=== PATIENT | female | born 1950 | race Two or more races ===

== ENCOUNTER 2021-03-18 18:11 | Inpatient (IN) | payer MEDICAID ==
[~2021-03-18] VITALS: Ht 160 cm; Wt 84.4 kg
--- NOTE | 2021-03-18 18:18 | NUR ---
PT BIBRA FROM HOME TO ER BED 06. PER REPORT, PT WENT TO THE BATHROOM AND THEY NOTICED BLOOD IN HER DIAPER. 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 PT STATES HER SYMPTOMS STARTED 1 HOUR AGO. VERBALLY RESPONSIVE. WELSH SPEAKING. GOWNED AND PLACED ON MONITOR. AWAITING MD CARLTON.
--- NOTE | 2021-03-18 18:29 | NUR ---
DR TOBAR AT BEDSIDE FOR EVAL.
[2021-03-18] MEDS ORDERED: IV NS 0.9% 1,000 ML BAG IV ONE (18:30)
[2021-03-18] MEDS ORDERED: IBUPROFEN 600 MG TABLET PO ONE (18:30)
[2021-03-18] MEDS ORDERED: ACETAMINOPHEN ES 500 MG TABLET PO ONE (18:30)
[2021-03-18] MEDS ORDERED: PIPERACILLIN /TAZOBACTAM 3.375 G in IV D5W 50 ML IV ONE (18:30)
--- NOTE | 2021-03-18 18:40 | NUR ---
IV LINE STARTED BLOOD DRAWN AND SENT TO LAB.
[2021-03-18 18:43] LABS: BASOPHILS % (AUTO) 0.2 % (0.0-2.0); EOSINOPHILS % (AUTO) 0.1 % (0.0-6.0); HEMATOCRIT 40 % (33-45); HEMOGLOBIN 12.9 g/dL (11.5-14.8); LYMPHOCYTES # (AUTO) 0.4 K/uL (0.8-4.8); LYMPHOCYTES % (AUTO) 2.6 % (20.0-44.0); MEAN CORPUSCULAR HGB CONC 32 g/dl (31.0-36.0); MEAN CORPUSCULAR VOLUME 81 fL (82-100); MONOCYTES # (AUTO) 0.9 K/uL (0.1-1.30); MONOCYTES % (AUTO) 5.1 % (2.0-12.0); PLATELET COUNT (AUTO) 241 K/uL (150-450); RED BLOOD CELL COUNT(AUTO) 4.98 MIL/uL (4.0-5.2); WHITE BLOOD COUNT (AUTO) 17.3 K/uL (4.3-11.0)
[2021-03-18] MEDS ORDERED: ACETAMINOPHEN ES 500 MG TABLET ONE (18:44)
[2021-03-18] MEDS ORDERED: IBUPROFEN 600 MG TABLET ONE (18:44)
[2021-03-18 18:53] LABS: CALCIUM, SERUM 8.6 mg/dL (8.5-10.1); CARBON DIOXIDE 24 mmol/L (21-32); CHLORIDE 99 mmol/L (98-107); CREATININE 0.9 mg/dL (0.6-1.3); GLUCOSE 119 mg/dL (74-106); POTASSIUM 3.5 mmol/L (3.5-5.1); SODIUM SERUM 133 mmol/L (136-145); UREA NITROGEN, BLOOD 17 mg/dL (7-18)
[2021-03-18 18:59] LABS: ALANINE AMINOTRANSFERASE 40 U/L (12-78); ALBUMIN 3.3 g/dL (3.4-5.0); ALKALINE PHOSPHATASE 73 U/L (46-116); ASPARTATE AMINOTRANSFERASE 41 U/L (15-37); BILIRUBIN,DIRECT 0.2 mg/dL (0.0-0.2); BILIRUBIN,TOTAL 0.5 mg/dL (0.2-1.0); TOTAL PROTEIN, SERUM 8.4 g/dL (6.4-8.2)
--- NOTE | 2021-03-18 19:07 | NUR ---
RADIOLOGY AT BEDSIDE FOR CHEST XRAY.
[2021-03-18] MEDS ORDERED: IV LR 1000 ML 1,000 ML IV ONE ×2 (19:30)
[2021-03-18 19:32] LABS: BILIRUBIN,URINE Negative (NEGATIVE); COLOR,URINE YELLOW (YELLOW); LEUKOCYTE ESTERASE ,URINE Small (NEGATIVE); NITRITE, URINE Positive (NEGATIVE); PH,URINE 5.5 (5.0-8.0); PROTEIN,URINE 30 mg/dl (NEGATIVE); UGLUCOSE Negative (NEGATIVE); UROBILINOGEN,URINE 0.2 EU/dL (0.2)
--- NOTE | 2021-03-18 19:40 | NUR ---
REC'D REPORT FROM FRANCESCO KAPLAN FOR RADHA. PT RESTING COMFORTABLY IN BED. FAMILY AT BEDSIDE. STILL ON MONITOR, WILL CONTINUE TO MONITOR
[2021-03-18 19:45] LABS: BACTERIA,URINE 3+ /HPF (None Seen); SQUAMOUS EPITHELIAL CELL,UR Few /HPF (None Seen)
--- NOTE | 2021-03-18 20:05 | NUR ---
PT BROUGHT BY RADIOLOGY TO CT
--- NOTE | 2021-03-18 20:15 | NUR ---
PT RETURNED FROM CT
--- NOTE | 2021-03-18 20:17 | NUR ---
DR. TOBAR AT BEDSIDE WITH PATIENT AND FAMILY REGARDING PLAN OF CARE
--- NOTE | 2021-03-18 20:57 | NUR ---
[facility] CARDIOLOGY PAGED PER DR TOBAR.
[2021-03-18] MEDS ORDERED: ASPIRIN 325 MG TABLET PO ONE (21:30)
[2021-03-18] MEDS ORDERED: ASPIRIN 325 MG TABLET ONE (21:36)
[2021-03-18] MEDS ORDERED: MAG HYDROX/AL HYDROX/SIMETH 30 ML UDC PO PRN (22:00)
[2021-03-18] MEDS ORDERED: Z GUARD REMEDY 2 OZ OINT TP PRN (22:00)
[2021-03-18] MEDS ORDERED: ZOLPIDEM TARTRATE 5 MG TABLET PO PRN (22:00)
[2021-03-18] MEDS ORDERED: ONDANSETRON HCL/PF 4 MG/2 ML VIAL IVP PRN (22:00)
[2021-03-18] MEDS ORDERED: MAGNESIUM HYDROXIDE 30 ML UDC PO PRN (22:00)
--- NOTE | 2021-03-18 22:33 | NUR ---
REPORT GIVEN TO FRANCESCO CHAUDHRY FOR RADHA
[2021-03-18 22:45] VITALS: BP 138/62
--- NOTE | 2021-03-18 22:53 | NUR ---
PT TRANSFERRED TO TELE 309 PER ACLS PROTOCOL
--- NOTE | 2021-03-18 23:00 | NUR ---
APPLICATIONS SCIENTIST ADMITTING NOTES RECEIVED PATIENT FROM Clayton MORAN ACCOMPANIED BY RAY Arnold RN. PATIENT IS AWAKE, A&O X 3-4, PATIENT IS AMHARIC SPEAKING, ABLE TO MAKE NEEDS KNOWN. VITAL SIGNS TAKEN AND RECORDED FOLLOWS: TEMP 97.8, NC 93, RR 20, OXYGEN SATURATION 100%. IN NO ACUTE DISTRESS NOTED. INFORMATION/HISTORY PROVIDED BY PATIENT UPON ASSESSMENT, INTERPRETED BY [facility] STUDIO DESIGNER. PATIENT IS ON ROOM AIR, TOLERATING WELL, NO SOB NOTED. NO COMPLAINTS OF PAIN AT THIS TIME. ONGOING IV OF NS 1L X 75CC/HR INFUSING WELL ON PATIENT LEFT AC, NO REDNESS, NO S/SX OF INFILTRATION NOTED. CONNECTED TO TELE MONITOR SHOWING NSR WITH ST DEPRESSION HR ON 90'S. SAFETY PRECAUTIONS OBSERVED: BED ON LOWEST LOCKED POSITION, SIDE RAILS UP X2, CALL LIGHT WITHIN EASY REACH. INSTRUCTED TO USE CALL LIGHT WHEN ASSISTANCE IS NEEDED, PATIENT VERBALIZED UNDERSTANDING. WILL CONTINUE TO MONITOR PATIENT'S CURRENT STATUS.
[2021-03-18] MEDS: IV NS 0.9% 1,000 ML IV PRN (23:14)
[2021-03-19] VITALS: BP 135/65
--- NOTE | 2021-03-19 02:29 | NUR ---
RN NOTES RECEIVED A CRITICAL RESULT OF TROPONIN I 3.630 FROM LAB C/O CIERRA. RESULT RELAYED TO ANN-MARIE DUTTON DNP.
--- NOTE | 2021-03-19 02:45 | NUR ---
RN NOTES FOLLOWED UP REFERRAL OF CRITICAL LAB RESULT OF TROPONIN I 3.630 VIA PHONE CALL. CHARGE NURSE INFORMED. AWAITING CALL BACK FROM DR. DUTTON.
--- NOTE | 2021-03-19 03:14 | NUR ---
RN NOTES RECEIVED A CALL BACK FROM DR. DUTTON WITH ORDER MADE AND CARRIED OUT.
[2021-03-19] MEDS ORDERED: ENOXAPARIN SODIUM 40 MG/0.4 ML DISP.SYRIN SQ SCH (03:30)
[2021-03-19 04:00] VITALS: BP 139/79
[2021-03-19] MEDS ORDERED: PIPERACILLIN /TAZOBACTAM 3.375 G VIAL IV ONE (04:41)
[2021-03-19] MEDS ORDERED: ZOSYN IVPB 3.375 G in IV D5W 50ml IV SCH (05:00)
[2021-03-19] MEDS: ACETAMINOPHEN 325 MG TABLET PO PRN ×2 (06:06→21:00)
--- NOTE | 2021-03-19 06:30 | NUR ---
CHINCHILLA FARMER CLOSING NOTES PATIENT IN BED, AWAKE, A&O X 3-4, CENTRAL AFRICAN SPEAKING, IN NO ACUTE DISTRESS NOTED. PATIENT IS ON ROOM AIR, TOLERATING WELL, NO SOB NOTED. NO COMPLAINTS OF PAIN AT THIS TIME. ONGOING IV OF NS 1L X 75CC/HR INFUSING WELL ON PATIENT LEFT AC, NO REDNESS, NO S/SX OF INFILTRATION NOTED. ON TELE MONITOR SHOWING NSR WITH ST DEPRESSION WITH SOME PVC'S, HR ON 90'S. SAFETY PRECAUTIONS OBSERVED AND MAINTAINED DURING THE SHIFT: BED ON LOWEST LOCKED POSITION, SIDE RAILS UP X2, CALL LIGHT WITHIN EASY REACH. WILL ENDORSE TO MORNING SHIFT NURSE FOR RADHA.
[2021-03-19 06:52] LABS: BASOPHILS % (AUTO) 0.1 % (0.0-2.0); EOSINOPHILS % (AUTO) 0.2 % (0.0-6.0); HEMATOCRIT 38 % (33-45); HEMOGLOBIN 11.9 g/dL (11.5-14.8); LYMPHOCYTES # (AUTO) 1.2 K/uL (0.8-4.8); LYMPHOCYTES % (AUTO) 8.4 % (20.0-44.0); MEAN CORPUSCULAR HGB CONC 31 g/dl (31.0-36.0); MEAN CORPUSCULAR VOLUME 83 fL (82-100); MONOCYTES # (AUTO) 0.7 K/uL (0.1-1.30); MONOCYTES % (AUTO) 4.6 % (2.0-12.0); NEUTROPHILS # (AUTO) 12.4 K/uL (1.8-8.9); NEUTROPHILS % (AUTO) 86.7 % (43.0-81.0); PLATELET COUNT (AUTO) 212 K/uL (150-450); RED BLOOD CELL COUNT(AUTO) 4.56 MIL/uL (4.0-5.2); WHITE BLOOD COUNT (AUTO) 14.3 K/uL (4.3-11.0)
[2021-03-19 07:09] LABS: ALBUMIN 2.8 g/dL (3.4-5.0); CALCIUM, SERUM 8.3 mg/dL (8.5-10.1); CREATININE 0.8 mg/dL (0.6-1.3); MAGNESIUM 1.9 mg/dL (1.8-2.4); PHOSPHORUS 3.3 mg/dL (2.5-4.9); POTASSIUM 3.3 mmol/L (3.5-5.1); TOTAL PROTEIN, SERUM 7.6 g/dL (6.4-8.2)
[2021-03-19 07:32] LABS: THYROID STIMULATING HORMONE 0.97 uIU/mL (0.358-3.74)
--- NOTE | 2021-03-19 07:45 | NUR ---
SUBWAY TRAIN DRIVER OPENING NOTES RECEIVED PATIENT IN BED AWAKE, ALERT AND ORIENTED X 3-4. BENGALI SPEAKING, DENIES PAIN OR ANY DISCOMFORTS AT THIS TIME. ON ROOM AIR, TOLERATING WELL WITH NO SOB NOTED. CURRENT TELEMONITOR SHOWS ST, HR 108, NO C/O CARDIAC DISTRESS VOICED. IV ACCESS ON LAC G#20 INTACT AND PATENT, IVF OF NS @ 75ML/HR INFUSING. SAFETY MEASURES IN PLACE: BED IN LOWEST LOCKED POSITION W/ SR UP X2. CALL LIGHT WITHIN REACH. WILL CONTINUE TO MONITOR
[2021-03-19 08:00] VITALS: BP 133/67
[2021-03-19] MEDS: PANTOPRAZOLE 40 MG TABLET.DR PO SCH (08:17)
[2021-03-19] MEDS: ASPIRIN 325 MG TABLET PO SCH (08:17)
[2021-03-19] MEDS ORDERED: POTASSIUM CHLORIDE 20 MEQ TAB.PRT.SR PO ONE (09:00)
[2021-03-19] MEDS ORDERED: ENOXAPARIN SODIUM 40 MG/0.4 ML DISP.SYRIN SQ ONE (09:30)
--- NOTE | 2021-03-19 09:39 | NUR ---
RN NOTES RECEIVED CALL FROM OTTER TRAWLER BOATSWAIN KAREN FIGUEROAID THAT PT HAD CRITICAL HIGH TROPONIN 7.094, DR REDDY MADE AWARE AND ORDERED LOVENOX, BETA BLOCKERS AND CTA. WILL CONTINUE TO MONITOR
[2021-03-19] MEDS: ATORVASTATIN 10 MG TABLET PO SCH (09:52)
--- NOTE | 2021-03-19 10:41 | NUR ---
RN NOTES PT FOR CTA, PROCEDURE EXPLAINED TO PT WITH ECUADOREAN SPEAKING STAFF, PT VERBALIZED UNDERSTANDING. ALL CONSENTS SIGNED AND FILED IN HER CHART. CALLED CT DEPARTMENT, SPOKE TO KAREN AND STATED THAT HE WILL CALL US ONCE THEY HAVE ENOUGH STAFF TO DO IT.
[2021-03-19] MEDS: PIPERACILLIN /TAZOBACTAM 3.375 G in IV D5W 100 ML IV SCH ×2 (11:15→20:35)
[2021-03-19 12:00] VITALS: BP 118/75
[2021-03-19] MEDS: METOPROLOL TARTRATE 50 MG TABLET PO SCH ×2 (12:28→17:23)
--- NOTE | 2021-03-19 17:13 | NUR ---
RN NOTES RECEIVED CALL FROM LAB THAT PT PRELIMINARY BLOOD CULTURE RESULTS SHOWS GRAM NEGATIVE RODS SEEN ON GRAM STAIN IN BOTH BOTTLES OF SET. PT ON IV ABX ZOSYN 3.375MG Q8HRS.
[2021-03-19] MEDS: IV NS 0.9% 1,000 ML IV PRN (18:15)
--- NOTE | 2021-03-19 18:39 | NUR ---
LUMBER DRIVER CLOSING NOTES PATIENT IN BED AWAKE AT THIS TIME. DAUGHTER AT BEDSIDE. ALERT AND ORIENTED X 3-4. PORTUGUESE SPEAKING. ON ROOM AIR, TOLERATING WELL WITH NO SOB NOTED DURING THE DAY. ON EXTERNAL CARE TEAM COORDINATOR SCHEDULER WITH CURRENT READING OF NSR, HR ON THE 80'S, NO C/O CARDIAC DISTRESS VOICED DURING THE DAY. IV ACCESS ON LAC G#20 INTACT AND PATENT, IVF OF NS @ 75ML/HR INFUSING WELL. NO S/S OF INFILTRATION AT SITE NOTED. ALL NEEDS AND CARE ATTENDED WELL. SAFETY MEASURES IN PLACE: BED IN LOWEST LOCKED POSITION W/ SR UP X2. CALL LIGHT WITHIN REACH. WILL ENDORSE RADHA TO HEADWAITER/HEADWAITRESS NURSE.
--- NOTE | 2021-03-19 19:47 | NUR ---
MS FEATURES REPORTER OPENING NOTES: RECEIVED PATIENT AWAKE IN BED , WITH DAUGHTER ON BEDSIDE, NO COMPLAIN OF PAIN AND DISCOMFORT AT THIS TIME, BED IN LOW POSITION, CALL LIGHTS WITHIN REACH, A/OX4 LAO SPEAKING, ON TELE MONITORING WITH READING OF SINUS RTHYM HR-86, PATIENT ON IV HYDRATION WITH LAC@75ML/HR INFUSING WELL, FOR CTA SCHEDULE WITH CONTRAS, PATIENT ON ROOM AIR NOSOB NOTED, KEPT CLEAN AND DRY, WILL CONTINUE TO MONITOR.
[2021-03-19 20:00] VITALS: BP 151/84
[2021-03-19] MEDS: ENOXAPARIN SODIUM 80 MG/0.8 ML DISP.SYRIN SQ SCH (20:39)
--- NOTE | 2021-03-19 21:00 | NUR ---
RN NOTES: PATIENT GIVEN TYLENOL 650MG Q6H FOR FEVER 99.4 F
[2021-03-19 23:38] VITALS: BP 132/76
[2021-03-20] MEDS: METOPROLOL TARTRATE 50 MG TABLET PO SCH ×4 (00:05→17:17)
[2021-03-20] MEDS: PIPERACILLIN /TAZOBACTAM 3.375 G in IV D5W 100 ML IV SCH ×3 (04:22→19:57)
[2021-03-20 04:45] VITALS: BP 140/68
[2021-03-20 06:30] LABS: BASOPHILS % (AUTO) 0.3 % (0.0-2.0); EOSINOPHILS % (AUTO) 0.3 % (0.0-6.0); HEMATOCRIT 37 % (33-45); HEMOGLOBIN 11.9 g/dL (11.5-14.8); LYMPHOCYTES # (AUTO) 1.5 K/uL (0.8-4.8); LYMPHOCYTES % (AUTO) 13.2 % (20.0-44.0); MEAN CORPUSCULAR HGB CONC 33 g/dl (31.0-36.0); MEAN CORPUSCULAR VOLUME 82 fL (82-100); MONOCYTES # (AUTO) 0.9 K/uL (0.1-1.30); MONOCYTES % (AUTO) 7.9 % (2.0-12.0); NEUTROPHILS # (AUTO) 9.1 K/uL (1.8-8.9); NEUTROPHILS % (AUTO) 78.3 % (43.0-81.0); PLATELET COUNT (AUTO) 188 K/uL (150-450); WHITE BLOOD COUNT (AUTO) 11.6 K/uL (4.3-11.0)
[2021-03-20 06:45] LABS: ALBUMIN 2.6 g/dL (3.4-5.0); BILIRUBIN,TOTAL 0.6 mg/dL (0.2-1.0); CREATININE 0.7 mg/dL (0.6-1.3); MAGNESIUM 1.9 mg/dL (1.8-2.4); PHOSPHORUS 2.9 mg/dL (2.5-4.9); POTASSIUM 3.2 mmol/L (3.5-5.1); TOTAL PROTEIN, SERUM 7.5 g/dL (6.4-8.2)
--- NOTE | 2021-03-20 06:50 | NUR ---
RN NOTES: LABORATORY LAB RESULT RECEIVED FOR TROPONIN=11.330 PREVIOUS WAS 7.094 WG=[facility] DR REDDY WAS AWARE, RELAYED TO DR MOJICA WITH NNO. ENDORSE TO INCOMING NURSE
--- NOTE | 2021-03-20 07:23 | NUR ---
MS RN CLOSING NOTE: PATIENT SLEEP IN BED COMFORTABLY, BED IN LOW POSITION, CALL LGHTS WITHIN REACH, NO COMPLAIN OF PAIN AND DISCOMFORT AT THIS TIME, PATINT HAS INTERMITTENT SLEEP AND TRANSFERRING FROM BED TO CHAIR, ON O2 AT 2LPM NO SOB NOTED, A/OX4 WITH BLE WEEPING EDEMA, DRESSING CHANGE, PATIENT KEPT CLEAN AND DRY, ALL NEEDS MET, ENDORSE TO INCOMING SHIFT
[2021-03-20] MEDS: PANTOPRAZOLE 40 MG TABLET.DR PO SCH (07:41)
[2021-03-20 08:00] VITALS: BP 145/84
[2021-03-20] MEDS: ATORVASTATIN 10 MG TABLET PO SCH (09:11)
[2021-03-20] MEDS: ENOXAPARIN SODIUM 80 MG/0.8 ML DISP.SYRIN SQ SCH ×2 (09:11→21:32)
[2021-03-20] MEDS: ACETAMINOPHEN 325 MG TABLET PO PRN (09:12)
[2021-03-20] MEDS: ASPIRIN 325 MG TABLET PO SCH (09:18)
[2021-03-20] MEDS: POTASSIUM CHLORIDE 20 MEQ TAB.PRT.SR PO SCH ×3 (09:23→15:01)
[2021-03-20] MEDS ORDERED: methylPREDNISolone SOD SUCC 125 MG/2ML VIAL IV STA (11:56)
[2021-03-20] MEDS ORDERED: diphenhydrAMINE HCL 50 MG/ML VIAL IV STA (11:56)
[2021-03-20] MEDS ORDERED: IOHEXOL-350 100 ML VIAL IV ONE (12:17)
[2021-03-20] MEDS ORDERED: IV NS 0.9% 250 ML IV ONE (12:17)
[2021-03-20] MEDS ORDERED: METOPROLOL TARTRATE INJ 5 MG/5 ML AMPUL ONE (12:38)
--- NOTE | 2021-03-20 12:46 | NUR ---
Report given to FRANCESCO Romero for continuity of care. Patient tolerated the procedure. Patient transported back to [facility] 309-2 via gurney. Patient remains in stable condition at this time.
[2021-03-20] MEDS ORDERED: NITROGLYCERIN 0.4 MG/TAB BOTTLE SL ONE (13:00)
[2021-03-20] MEDS ORDERED: METOPROLOL TARTRATE INJ 5 MG/5 ML AMPUL IVP PRN (13:00)
[2021-03-20 16:00] VITALS: BP 114/69
--- NOTE | 2021-03-20 19:35 | NUR ---
RN NOTES RECEIVED PATIENT AWAKE ON HER BED, A/OX4, UZBEK SPEAKING, DAUGHTER AT BEDSIDE, SB ON TELE MONITOR, HR-58, NOT IN DISTRESS, NO PAIN NOTED, CALL LIGHT WITHIN REACH, [id number], WILL CONTINUE TO MONITOR
[2021-03-20 20:00] VITALS: BP 124/67
[2021-03-21] VITALS: BP_SYST 119; BP_DIAS 48; BP_DIAS 60
--- NOTE | 2021-03-21 00:05 | NUR ---
RN NOTES DR. FERNANDEZ ( RADIOLOGIST) CALLED AND INFORMED ME THE RESULT OF PATIENT CT ANGIO, WILL INFORM BARRY RAMIREZ
[2021-03-21] MEDS: METOPROLOL TARTRATE 50 MG TABLET PO SCH ×5 (00:21→23:46)
[2021-03-21] MEDS: PIPERACILLIN /TAZOBACTAM 3.375 G in IV D5W 100 ML IV SCH (03:45)
[2021-03-21 04:00] VITALS: BP 134/67
[2021-03-21 06:03] LABS: BASOPHILS % (AUTO) 0.1 % (0.0-2.0); HEMATOCRIT 35 % (33-45); HEMOGLOBIN 11.3 g/dL (11.5-14.8); LYMPHOCYTES # (AUTO) 1.2 K/uL (0.8-4.8); MEAN CORPUSCULAR HGB CONC 33 g/dl (31.0-36.0); MEAN CORPUSCULAR VOLUME 82 fL (82-100); MONOCYTES # (AUTO) 0.6 K/uL (0.1-1.30); MONOCYTES % (AUTO) 6.1 % (2.0-12.0); NEUTROPHILS # (AUTO) 8.4 K/uL (1.8-8.9); NEUTROPHILS % (AUTO) 81.8 % (43.0-81.0); PLATELET COUNT (AUTO) 187 K/uL (150-450); RED BLOOD CELL COUNT(AUTO) 4.23 MIL/uL (4.0-5.2); WHITE BLOOD COUNT (AUTO) 10.3 K/uL (4.3-11.0)
--- NOTE | 2021-03-21 06:27 | NUR ---
RN NOTES SLEEPING BUT AROUSABLE, NOT IN DISTRESS, DENIES PAIN, NO SOB, MORNING CARE RENDERED , CALL LIGHT WITHIN REACH, [id number], PT. NEEDS ATTENDED
[2021-03-21 06:31] LABS: ALBUMIN 2.3 g/dL (3.4-5.0); BILIRUBIN,TOTAL 0.3 mg/dL (0.2-1.0); CALCIUM, SERUM 8.1 mg/dL (8.5-10.1); CREATININE 0.7 mg/dL (0.6-1.3); MAGNESIUM 2.2 mg/dL (1.8-2.4); PHOSPHORUS 2.8 mg/dL (2.5-4.9); POTASSIUM 3.7 mmol/L (3.5-5.1); TOTAL PROTEIN, SERUM 7.3 g/dL (6.4-8.2)
[2021-03-21] MEDS: PANTOPRAZOLE 40 MG TABLET.DR PO SCH (07:30)
--- NOTE | 2021-03-21 07:45 | NUR ---
RN OPENING NOTES SLEEPING BUT AROUSABLE, NOT IN DISTRESS, NO C/O PAIN OR DISCOMFORT BREATHING EVEN AND UNLABORED CALL LIGHT WITHIN REACH AND ANSWERE DPROMPTLY. BED IN LOWEST POSITION, SIDE RAILS X2.
[2021-03-21] MEDS: ATORVASTATIN 10 MG TABLET PO SCH (08:40)
[2021-03-21] MEDS: ASPIRIN 325 MG TABLET PO SCH (08:40)
[2021-03-21] MEDS: ENOXAPARIN SODIUM 80 MG/0.8 ML DISP.SYRIN SQ SCH (08:41)
[2021-03-21 08:47] VITALS: BP 122/72
[2021-03-21] MEDS: GENTAMICIN 100 MG in IV D5W 100 ML IV SCH (11:31)
[2021-03-21 16:58] VITALS: BP 134/66
--- NOTE | 2021-03-21 19:30 | NUR ---
MS BANDOLEER STRAIGHTENER STAMPER OPENING NOTES: RECEIVED PATIENT IN BED , AWAKE, WITH DAUGHTER ON BEDSIDE, ALERT AND ORIENTED X 4, PATIENT IS A ICELANDIC SPEAKER. ONGOING IVF OF NS 1 L X 75CC/HR INFUSING WELL OVER PATIENT'S RAC G#18, NO REDNESS NOTED, NO S/SX OF INFILTRATION NOTED. NOTED WITH LEFT ARM BRUISE AND BRUISE ON RIGHT LOWER ABDOMINAL AREA. PATIENT IS IN NO ACUTE DISTRESS. ON TELEMONITOR SHOWING NSR HR 62 BPM. ON ROOM AIR TOLERATING WELL NO SOB NOTED. SAFETY PRECAUTIONS IN PLACE: BED ON LOWEST LOCKED POSITION, SIDE RAILS UP X2, KEPT CALL LIGHT WITHIN EASY REACH. REINFORCED NPO POST MIDNIGHT. INSTRUCTED TO USE CALL LIGHT WHEN ASSISTANCE IS NEEDED. PATIENT VERBALIZED UNDERSTANDING OF INSTRUCTIONS GIVEN. WILL CONTINUE TO MONITOR PATIENT CURRENT STATUS.
[2021-03-21 20:00] VITALS: BP 134/81
[2021-03-21 20:01] VITALS: BP 134/81
[2021-03-22] VITALS (7 sets, daily range): BP systolic 122–151; BP diastolic 65–95
[2021-03-22] MEDS: IV NS 0.9% 1,000 ML IV PRN ×2 (03:43→19:19)
[2021-03-22] MEDS: METOPROLOL TARTRATE 50 MG TABLET PO SCH ×3 (05:35→17:59)
[2021-03-22 05:54] LABS: BASOPHILS % (AUTO) 0.3 % (0.0-2.0); EOSINOPHILS % (AUTO) 1.5 % (0.0-6.0); HEMATOCRIT 33 % (33-45); HEMOGLOBIN 10.6 g/dL (11.5-14.8); LYMPHOCYTES % (AUTO) 36.5 % (20.0-44.0); MEAN CORPUSCULAR HGB CONC 32 g/dl (31.0-36.0); MEAN CORPUSCULAR VOLUME 82 fL (82-100); MONOCYTES # (AUTO) 0.9 K/uL (0.1-1.30); MONOCYTES % (AUTO) 11.1 % (2.0-12.0); NEUTROPHILS # (AUTO) 4.2 K/uL (1.8-8.9); NEUTROPHILS % (AUTO) 50.6 % (43.0-81.0); PLATELET COUNT (AUTO) 195 K/uL (150-450); RED BLOOD CELL COUNT(AUTO) 3.99 MIL/uL (4.0-5.2); WHITE BLOOD COUNT (AUTO) 8.2 K/uL (4.3-11.0)
--- NOTE | 2021-03-22 06:01 | NUR ---
RN NOTES' RECEIVED A PHONE CALL FROM LAB C/O NAZANIN. PATIENT'S PRELIMINARY RESULT OF BLOOD CULTURE IS (+) FOR GRAM NEGATIVE RODS. KIRSTEN FAIR (ID) INFORMED.
[2021-03-22 06:15] LABS: CALCIUM, SERUM 7.7 mg/dL (8.5-10.1); CREATININE 0.7 mg/dL (0.6-1.3); POTASSIUM 3.6 mmol/L (3.5-5.1)
--- NOTE | 2021-03-22 06:26 | NUR ---
FLIGHT ENGINEER INSPECTOR CLOSING NOTES: PATIENT IN BED , AWAKE, A&O X 4, IVF OF NS 1 L X 75CC/HR INFUSING WELL OVER PATIENT'S RAC G#18, NO REDNESS NOTED, NO S/SX OF INFILTRATION NOTED. NOTED WITH LEFT ARM BRUISE AND BRUISE ON RIGHT LOWER ABDOMINAL AREA. IN NO ACUTE DISTRESS. ON TELEMONITOR SHOWING NSR HR 62 BPM. NO SOB NOTED. SAFETY PRECAUTIONS OBSERVED AND MAINTAINED DURING THE SHIFT: BED ON LOWEST LOCKED POSITION, SIDE RAILS UP X2, KEPT CALL LIGHT WITHIN EASY REACH. ON NPO. NEEDS ATTENDED. WILL ENDORSE TO MORNING SHIFT NURSE FOR RADHA.
[2021-03-22] MEDS: PANTOPRAZOLE 40 MG TABLET.DR PO SCH (07:30)
--- NOTE | 2021-03-22 07:59 | NUR ---
TELE/RN OPENING NOTES: RECEIVED PATIENT IN BED , AWAKE, A&O X 4, ON OXYGEN AT 2 LPM VIA NASAL CANULA. IN NO ACUTE DISTRESS. ON NPO DUE TO SCHEDULED CATHETERIZATION TODAY BETWEEN [phone] NINO. ALL CONSENTS SIGNED AND COMPLETED ON THE CHART. ON TELEMONITOR SHOWING SINUS WHIT. IVF OF NS 1 L X 75CC/HR INFUSING WELL OVER PATIENT'S RAC G#18, NO REDNESS NOTED, NO S/SX OF INFILTRATION NOTED. NOTED WITH LEFT ARM BRUISE AND BRUISE ON RIGHT LOWER ABDOMINAL AREA. SAFETY PRECAUTIONS OBSERVED: BED ON LOWEST LOCKED POSITION, SIDE RAILS UP X2, KEPT CALL LIGHT WITHIN EASY REACH. WILL CONTINUE TO MONITOR PATIENT.
[2021-03-22] MEDS: ATORVASTATIN 10 MG TABLET PO SCH (08:10)
[2021-03-22] MEDS: ASPIRIN 325 MG TABLET PO SCH (08:10)
[2021-03-22] MEDS: GENTAMICIN 100 MG in IV D5W 100 ML IV SCH (11:37)
[2021-03-22] MEDS ORDERED: methylPREDNISolone SOD SUCC 125 MG/2ML VIAL IV ONE (12:00)
[2021-03-22] MEDS ORDERED: LIDOCAINE HCL/MPF 1% 30 ML VIAL IJ ONE (12:40)
[2021-03-22] MEDS ORDERED: IODIXANOL 150 ML IV ONE (12:40)
[2021-03-22] MEDS ORDERED: IV NS 0.9% 1,000 ML ONE (12:40)
[2021-03-22] MEDS ORDERED: NITROGLYCERIN IN 5 % DEXTROSE 250 ML IV ONE (12:41)
--- NOTE | 2021-03-22 13:00 | NUR ---
MS/RN NOTES PATIENT PICKED UP TO DO CARDIAC CATHETERIZATION. PATIENT ALERT AND ORIENTED X3, ABLE TO MAKE NEEDS KNOWN. V/S WITHIN NORMAL.
[2021-03-22] MEDS ORDERED: diphenhydrAMINE HCL 50 MG/ML VIAL ONE (13:38)
[2021-03-22] MEDS ORDERED: methylPREDNISolone SOD SUCC 125 MG/2ML VIAL ONE (13:38)
[2021-03-22] MEDS ORDERED: FENTANYL PF 100MCG/2ML AMPUL ONE (14:04)
[2021-03-22] MEDS ORDERED: MIDAZOLAM HCL 2 MG/2ML VIAL ONE (14:04)
--- NOTE | 2021-03-22 14:45 | NUR ---
ELECTRICAL SYSTEMS DESIGN ENGINEER NOTES PATIENT CAME BACK FROM THE CARDIAC CATHETERIZATION PROCEDURE. PATIENT IS ALERT AND ORIENTED X3, ABLE TO MAKE NEEDS KNOWN. TR BAND PRESENT ON RIGHT ARM TO BE GRADUALLY DEFLATED AFTER AN HOUR. PATIENT'S RIGHT UPPER EXTREMITY CHECKED FOR BOUNDING PULSE-PRESENT, NO DISCOLORATION NOTED. NO BLEEDING NOTED. WILL CONTINUE TO MONITOR.
--- NOTE | 2021-03-22 15:47 | NUR ---
TELE/RN NOTES PATIENT'S PREVIOUS IV ACCESS ON LEFT AC THAT WAS DISCONTINUED 2 DAYS AGO WAS NOTED TO BE SWOLLEN, BRUISING AND TENDER TO TOUCH. REPORTED ASSESSMENT TO DR. PIPER AND ORDERED ECHO DUPLEX OF THE LEFT ARM COMPLETE TO RULE OUT DVT. VERIFIED ORDER AND CARRIED OUT. WILL CONTINUE TO MONITOR PATIENT.
--- NOTE | 2021-03-22 19:08 | NUR ---
TELE/RN NOTES VENOUS DUPLEX RESULT ON LEFT ARM IS NEGATIVE FOR DVT. NOTIFIED DR. PIPER.
--- NOTE | 2021-03-22 19:09 | NUR ---
TELE/RN CLOSING NOTES: PATIENT IN BED , AWAKE, A&O X 4, ON OXYGEN AT 2 LPM VIA NASAL CANULA. IN NO ACUTE DISTRESS. CARDIAC CATHETERIZATION ON RIGHT HAND DONE TODAY BY DR. NINO. NO BLEEDING NOTED. ON CARDIAC DIET. ON TELEMONITOR SHOWING SR 88. IVF OF NS 1 L X 75CC/HR INFUSING WELL OVER PATIENT'S RAC G#18, NO REDNESS NOTED, NO S/SX OF INFILTRATION NOTED. SAFETY PRECAUTIONS OBSERVED: BED ON LOWEST LOCKED POSITION, SIDE RAILS UP X2, KEPT CALL LIGHT WITHIN EASY REACH. WILL ENDORSE TO THE NEXT SHIFT FOR CONTINUITY OF CARE.
--- NOTE | 2021-03-22 19:30 | NUR ---
MAT MAN OPENING NOTES: RECEIVED PATIENT IN BED , AWAKE, A&O X 4, ON O2 AT 2 LPM VIA NASAL CANULA SATURATING WELL AT 96%. IN NO ACUTE DISTRESS NOTED. NO BLEEDING ON CARDIAC CATHETERIZATION SITE ON RIGHT HAND NOTED. ON CARDIAC DIET. ON TELEMONITOR SHOWING SR 88. IVF OF NS 1 L X 75CC/HR INFUSING WELL OVER PATIENT'S RAC G#18, NO REDNESS NOTED, NO S/SX OF INFILTRATION NOTED. SAFETY PRECAUTIONS OBSERVED: BED ON LOWEST LOCKED POSITION, SIDE RAILS UP X2, KEPT CALL LIGHT WITHIN EASY REACH. WILL CONTINUE TO MONITOR CURRENT STATUS.
[2021-03-22] MEDS: ENOXAPARIN SODIUM 40 MG/0.4 ML DISP.SYRIN SQ SCH (20:50)
[2021-03-22] MEDS ORDERED: CEFTRIAXONE 1 G VIAL ONE (22:26)
[2021-03-22] MEDS: CEFTRIAXONE 1 G in IV D5W 50 ML IV SCH (22:34)
[2021-03-23] VITALS: BP 120/64
[2021-03-23] MEDS: METOPROLOL TARTRATE 50 MG TABLET PO SCH ×4 (00:14→17:18)
[2021-03-23 04:00] VITALS: BP 122/66
--- NOTE | 2021-03-23 06:23 | NUR ---
DIRT BIKE MECHANIC CLOSING NOTES PATIENT IN BED , AWAKE, A&O X 4, ON O2 AT 2 LPM VIA NASAL CANULA SATURATING WELL AT 95%. IN NO ACUTE DISTRESS NOTED. NO BLEEDING ON CARDIAC CATHETERIZATION SITE ON RIGHT HAND NOTED. ON TELEMONITOR SHOWING SINUS WHIT WITH PVC'S HR AT 58. IVF OF NS 1 L X 75CC/HR INFUSING WELL OVER PATIENT'S RAC G#18, NO REDNESS NOTED, NO S/SX OF INFILTRATION NOTED. DISTAL PULSES PRESENT. CARDIAC CATH SITE WITH DRY AND INTACT DRESSING, NO S/SX OF BLEEDING NOTED. SAFETY PRECAUTIONS OBSERVED AND MAINTAINED DURING THE SHIFT: BED ON LOWEST LOCKED POSITION, SIDE RAILS UP X2, KEPT CALL LIGHT WITHIN EASY REACH. ALL NEEDS ATTENDED AND MET. WILL ENDORSE TO MORNING SHIFT NURSE FOR RADHA.
[2021-03-23 06:37] LABS: BASOPHILS % (AUTO) 0.1 % (0.0-2.0); HEMATOCRIT 33 % (33-45); HEMOGLOBIN 10.7 g/dL (11.5-14.8); LYMPHOCYTES # (AUTO) 1.2 K/uL (0.8-4.8); LYMPHOCYTES % (AUTO) 16.7 % (20.0-44.0); MEAN CORPUSCULAR HGB CONC 33 g/dl (31.0-36.0); MEAN CORPUSCULAR VOLUME 82 fL (82-100); MONOCYTES # (AUTO) 0.4 K/uL (0.1-1.30); MONOCYTES % (AUTO) 5.3 % (2.0-12.0); NEUTROPHILS # (AUTO) 5.6 K/uL (1.8-8.9); NEUTROPHILS % (AUTO) 77.9 % (43.0-81.0); PLATELET COUNT (AUTO) 207 K/uL (150-450); RED BLOOD CELL COUNT(AUTO) 3.98 MIL/uL (4.0-5.2); WHITE BLOOD COUNT (AUTO) 7.2 K/uL (4.3-11.0)
[2021-03-23 07:25] LABS: CALCIUM, SERUM 8.1 mg/dL (8.5-10.1); CREATININE 0.6 mg/dL (0.6-1.3); PHOSPHORUS 3.3 mg/dL (2.5-4.9); POTASSIUM 3.5 mmol/L (3.5-5.1)
[2021-03-23 08:00] VITALS: BP 126/73
[2021-03-23] MEDS: PANTOPRAZOLE 40 MG TABLET.DR PO SCH (08:14)
[2021-03-23] MEDS: ASPIRIN 325 MG TABLET PO SCH (08:14)
[2021-03-23] MEDS: ATORVASTATIN 10 MG TABLET PO SCH (08:14)
[2021-03-23 12:00] VITALS: BP 129/65
[2021-03-23 16:00] VITALS: BP 125/64
--- NOTE | 2021-03-23 19:25 | NUR ---
TELE/RN OPENING NOTE RECEIVED PATIENT RESTING IN BED. AWAKE, ALERT AND ORIENTED X 4. ABLE TO MAKE NEEDS KNOWN. PRIMARILY BELARUSIAN SPEAKING BUT UNDERSTANDS SOME LITHUANIAN. FAMILY CURRENTLY AT BEDSIDE. PATIENT DENIES PAIN AT THIS TIME. CONTINUES ON ROOM AIR WITH NO S/SX OF RESPIRATORY DISTRESS NOTED. IV ACCESS TO RIGHT UPPER ARM MIDLINE INTACT, PATENT AND SALINE LOCKED. CONTINUES ON IV ABX. TELE MONITOR CURRENTLY READING SB WITH PVCS HR 56. CALL LIGHT WITHIN REACH. ASPIRATION, FALL AND SAFETY PRECAUTIONS MAINTAINED. WILL CONTINUE TO MONITOR.
[2021-03-23 20:00] VITALS: BP 151/77
[2021-03-23] MEDS: CEFTRIAXONE 1 G in IV D5W 50 ML IV SCH (21:56)
[2021-03-23] MEDS: ENOXAPARIN SODIUM 40 MG/0.4 ML DISP.SYRIN SQ SCH (21:58)
[2021-03-24] VITALS: BP 144/70
[2021-03-24] MEDS: METOPROLOL TARTRATE 50 MG TABLET PO SCH ×4 (01:17→17:15)
[2021-03-24 04:00] VITALS: BP 143/74
[2021-03-24 06:14] LABS: BASOPHILS % (AUTO) 0.4 % (0.0-2.0); EOSINOPHILS % (AUTO) 1.9 % (0.0-6.0); HEMATOCRIT 34 % (33-45); HEMOGLOBIN 10.9 g/dL (11.5-14.8); LYMPHOCYTES % (AUTO) 42.2 % (20.0-44.0); MEAN CORPUSCULAR HGB CONC 32 g/dl (31.0-36.0); MEAN CORPUSCULAR VOLUME 82 fL (82-100); MONOCYTES % (AUTO) 10.2 % (2.0-12.0); NEUTROPHILS # (AUTO) 4.3 K/uL (1.8-8.9); NEUTROPHILS % (AUTO) 45.3 % (43.0-81.0); PLATELET COUNT (AUTO) 221 K/uL (150-450); RED BLOOD CELL COUNT(AUTO) 4.13 MIL/uL (4.0-5.2); WHITE BLOOD COUNT (AUTO) 9.6 K/uL (4.3-11.0)
[2021-03-24 06:15] LABS: CREATININE 0.6 mg/dL (0.6-1.3); PHOSPHORUS 4.1 mg/dL (2.5-4.9); POTASSIUM 3.2 mmol/L (3.5-5.1)
--- NOTE | 2021-03-24 06:20 | NUR ---
TELE/RN CLOSING NOTE PATIENT CURRENTLY SLEEPING IN BED. ALERT AND ORIENTED X 4. ABLE TO MAKE NEEDS KNOWN. PRIMARILY ITALIAN SPEAKING BUT UNDERSTANDS SOME BRUNEIAN. DENIES PAIN AT THIS TIME. CONTINUES ON 2L O2 VIA NC WITH NO S/SX OF RESPIRATORY DISTRESS NOTED. IV ACCESS TO RIGHT UPPER ARM MIDLINE INTACT, PATENT AND SALINE LOCKED. CONTINUES ON IV ABX. TELE MONITOR CURRENTLY READING SB/SR WITH PVCS. CALL LIGHT WITHIN REACH. ASPIRATION, FALL AND SAFETY PRECAUTIONS MAINTAINED. WILL ENDORSE PLAN OF CARE TO ONCOMING SHIFT.
--- NOTE | 2021-03-24 07:53 | NUR ---
RN OPENING NOTE PT RESTING IN BED ASLEEP. AROUSES TO LIGHT TOUCH. A/O X4 AND UNDERSTANDS SOME FRENCH. ON 2L NC WITH NO RESPIRATORY DISTRESS PRESENT. O2 SAT 97%. ON STEAM POWERPLANT SUPERVISOR. NO EDEMA PRESEN. ON BEDREST WITH BEDPAN AT BEDSIDE. WOUNDS PRESENT AND WOUND CARE ORDERED. IV PRESENT ON R AC 18 AND FLUSHES WELL. LABS AND ORDERS REVIEWED. SAFETY MEASURES IN PLACE. SIDE RAILS RAISED. BED LOWERED. CALL LIGHT WITHIN REACH. WILL CONTINUE TO MONITOR.
[2021-03-24 08:00] VITALS: BP 134/81
[2021-03-24] MEDS ORDERED: POTASSIUM CHLORIDE 20 MEQ TAB.PRT.SR PO ONE (09:00)
[2021-03-24] MEDS: ATORVASTATIN 10 MG TABLET PO SCH (09:10)
[2021-03-24] MEDS: ASPIRIN 325 MG TABLET PO SCH (09:10)
[2021-03-24] MEDS: PANTOPRAZOLE 40 MG TABLET.DR PO SCH (09:11)
[2021-03-24 16:00] VITALS: BP 149/79
--- NOTE | 2021-03-24 17:27 | NUR ---
RN CLOSING NOTE PT AWAKE IN BED. A/O X4 AND UNDERSTANDS SOME CUBAN. ON 2L NC WITH NO RESPIRATORY DISTRESS PRESENT. O2 SAT 93%. ON FOOD AND BEVERAGE ASSOCIATE. NO EDEMA PRESENT. ON BEDREST WITH BEDPAN AT BEDSIDE. WOUNDS PRESENT AND WOUND CARE ORDERED. IV PRESENT ON R AC 18 AND FLUSHES WELL. LABS AND ORDERS REVIEWED. ROUTINE MEDS GIVEN. SAFETY MEASURES IN PLACE. SIDE RAILS RAISED. BED LOWERED. CALL LIGHT WITHIN REACH. REPORT TO BE GIVEN TO NIGHT NURSE FOR RADHA.
[2021-03-24 20:00] VITALS: BP_SYST 72
[2021-03-24] MEDS: ENOXAPARIN SODIUM 40 MG/0.4 ML DISP.SYRIN SQ SCH (21:25)
[2021-03-24] MEDS: CEFTRIAXONE 1 G in IV D5W 50 ML IV SCH (21:26)
[2021-03-25] VITALS: BP 144/73
[2021-03-25] MEDS: METOPROLOL TARTRATE 50 MG TABLET PO SCH ×3 (01:10→11:38)
[2021-03-25 04:00] VITALS: BP 137/73
[2021-03-25 06:24] LABS: BASOPHILS % (AUTO) 0.3 % (0.0-2.0); EOSINOPHILS % (AUTO) 5.1 % (0.0-6.0); HEMATOCRIT 36 % (33-45); HEMOGLOBIN 11.6 g/dL (11.5-14.8); LYMPHOCYTES # (AUTO) 3.4 K/uL (0.8-4.8); LYMPHOCYTES % (AUTO) 32.7 % (20.0-44.0); MEAN CORPUSCULAR HGB CONC 33 g/dl (31.0-36.0); MEAN CORPUSCULAR VOLUME 82 fL (82-100); MONOCYTES # (AUTO) 0.9 K/uL (0.1-1.30); MONOCYTES % (AUTO) 8.8 % (2.0-12.0); NEUTROPHILS # (AUTO) 5.5 K/uL (1.8-8.9); NEUTROPHILS % (AUTO) 53.1 % (43.0-81.0); PLATELET COUNT (AUTO) 236 K/uL (150-450); RED BLOOD CELL COUNT(AUTO) 4.32 MIL/uL (4.0-5.2); WHITE BLOOD COUNT (AUTO) 10.4 K/uL (4.3-11.0)
--- NOTE | 2021-03-25 06:29 | NUR ---
BARK FITTER NOTES AWAKE & RESPONSIVE. NOT IN ANY DISTRESS. NO SOB NOTED. DENIES ANY PAIN OR DISCOMFORT AT THIS TIME. ON TELE SB @ 54 WITH IV-HL PATENT & INTACT. MONITORED ACCORDINGLY. CALL LIGHT WITHIN REACH. BED IN LOWEST POSITION. SR UP X 2 FOR SAFETY. WILL ENDORSE TO NEXT SHIFT.
[2021-03-25 07:15] LABS: CALCIUM, SERUM 8.2 mg/dL (8.5-10.1); CREATININE 0.6 mg/dL (0.6-1.3); PHOSPHORUS 3.5 mg/dL (2.5-4.9); POTASSIUM 3.6 mmol/L (3.5-5.1)
--- NOTE | 2021-03-25 07:30 | NUR ---
RN OPENING NOTE PT AWAKE IN BED RESTING. A/O X4 AND UNDERSTANDS SOME TAMAZIGHT. ON 2L NC WITH NO RESPIRATORY DISTRESS PRESENT. ON SHREDDING MACHINE KNIFE CHANGER. NO EDEMA PRESENT. ON BEDREST WITH BEDPAN AT BEDSIDE. WOUNDS PRESENT AND WOUND CARE ORDERED. IV PRESENT ON R AC 18 AND FLUSHES WELL. LABS AND ORDERS REVIEWED. SAFETY MEASURES IN PLACE. SIDE RAILS RAISED. BED LOWERED. CALL LIGHT WITHIN REACH. WILL CONTINUE TO MONITOR
[2021-03-25] MEDS: PANTOPRAZOLE 40 MG TABLET.DR PO SCH (07:52)
[2021-03-25 08:00] VITALS: BP 155/75
[2021-03-25] MEDS: ATORVASTATIN 10 MG TABLET PO SCH (08:19)
[2021-03-25] MEDS: ASPIRIN 325 MG TABLET PO SCH (08:19)
[2021-03-25 11:38] VITALS: BP 122/62
--- NOTE | 2021-03-25 15:06 | NUR ---
FAMILY WORKER NOTE PT DISCHARGED HOME VIA PRIVATE CAR ACCOMPANIED BY DAUGHTER. BELONGINGS CHECKED AND GIVEN TO PT. IV LINE REMOVED. ID BANDS REMOVED. SKIN INTACT. PT TO TAKE COREG 25 MG BID PER ORDER BY MD PIPER. EXITCARE EDUCATION UTILIZED AND EDUCATION GIVEN TO PT. PT LEFT IN STABLE CONDITION. Addendum: 03/25/21 at 1606 by PHILIPPE SHAH RN ---- WRONG PT. PROPER DISCHARGE NOTE WRITTEN AT 1603 ----
[2021-03-25] MEDS ORDERED: ATOR10TA PO (15:34)
[2021-03-25] MEDS ORDERED: METO50TA16 PO (15:34)
[2021-03-25] MEDS ORDERED: ASPI-992 PO (15:34)
[2021-03-25] MEDS ORDERED: PANT40TA2 PO (15:34)
[2021-03-25] MEDS ORDERED: LEVO750T46 PO (15:34)
--- NOTE | 2021-03-25 16:03 | NUR ---
SALES AGENT INSURANCE NOTE PT DISCHARGED HOME VIA PRIVATE CAR ACCOMPANIED BY FAMILY. SKIN BRUISING PRESENT, PT REFUSE WOUND PHOTOS PRIOR TO DISCHARGE. IV LINE REMOVED. ID BAND REMOVED. BELONGINGS CHECKED AND GIVEN TO PT. EXITCARE EDUCATION UTILIZED AND EDUCATION GIVEN TO PT. NEW PRESCRIPTION EDUCATION GIVEN TO PT AND PHARMACY CHECKED. F/U WITH PCP AND PAPER CONE GRADER IN 2 WEEKS EDUCATED TO PT. PT DISCHARGED IN STABLE CONDITION
== END 2021-03-25 16:07 | disposition home or self-care (01) | DRG 720 ==
LOC: ER 19:02 → TELE 22:20
PROVIDERS: ADMIT Hospitalist; ATTEND Student in an Organized Health Care Education/Training Program
PROC: 4A023N7 Measurement of Cardiac Sampling and Pressure, Left Heart, Percutaneous Approach (ICD-10-PCS; principal; 2021-03-22)
PROC: B211YZZ Fluoroscopy of Multiple Coronary Arteries using Other Contrast (ICD-10-PCS; 2021-03-22)
PROC: 02HV33Z Insertion of Infusion Device into Superior Vena Cava, Percutaneous Approach (ICD-10-PCS; 2021-03-23)
PROC: B548ZZA Ultrasonography of Superior Vena Cava, Guidance (ICD-10-PCS; 2021-03-23)
DX: A41.9 Sepsis, unspecified organism (principal); I21.4 Non-ST elevation (NSTEMI) myocardial infarction; E87.2 Acidosis; E44.1 Mild protein-calorie malnutrition; E66.01 Morbid (severe) obesity due to excess calories; I25.82 Chronic total occlusion of coronary artery; E87.1 Hypo-osmolality and hyponatremia; I35.8 Other nonrheumatic aortic valve disorders; R65.20 Severe sepsis without septic shock; G51.0 Bell's palsy; B96.20 Unspecified Escherichia coli [E. coli] as the cause of diseases classified elsewhere; N39.0 Urinary tract infection, site not specified; G89.29 Other chronic pain; I25.10 Atherosclerotic heart disease of native coronary artery without angina pectoris; I10 Essential (primary) hypertension; K57.90 Diverticulosis of intestine, part unspecified, without perforation or abscess without bleeding; K80.20 Calculus of gallbladder without cholecystitis without obstruction; Z68.33 Body mass index [BMI] 33.0-33.9, adult; K42.9 Umbilical hernia without obstruction or gangrene; M54.41 Lumbago with sciatica, right side; R31.9 Hematuria, unspecified; Z20.822 Contact with and (suspected) exposure to COVID-19
CPT/HCPCS: 36410; 36415; 71045-TC; 75574; 80048-TC; 80053-TC; 80061-TC; 80076-TC; 80170-TC; 81001; 83605-TC; 83735-TC; 84100-TC; 84443-TC; 84484-TC; 85025-TC; 85730-TC; 87040-TC; 87081-TC; 87086-TC; 87186-TC; 93307-TC; 93971-TC; C9803; G0378; G0500; J0696; J1200; J1580; J1644; J1650; J2250; J2543; J2930; J3010; J3490; J7030; J7050; J7060; J7120; Q9967

== ENCOUNTER 2024-02-27 02:35 | Inpatient (IN) | payer MEDICAID ==
[~2024-02-27] VITALS: Ht 162.6 cm; Wt 74.8 kg
[~2024-02-27 02:35] MED LIST: ASPI-992 PO; ATOR10TA PO; LEVO750T46 PO; METO50TA16 PO; PANT40TA2 PO
[2024-02-27] MEDS ORDERED: CEFEPIME 1 GM VIAL ONE (03:08)
[2024-02-27] MEDS ORDERED: VANCOMYCIN 1 GM /D5W 250 ML PB IV ONE (03:08)
[2024-02-27 03:09] LABS: BASOPHILS # (AUTO) 0.1 K/uL (0.0-0.2); BASOPHILS % (AUTO) 0.8 % (0.0-2.0); EOSINOPHILS # (AUTO) 0.1 K/uL (0.0-0.7); EOSINOPHILS % (AUTO) 0.6 % (0.0-6.0); HEMATOCRIT 35 % (33-45); HEMOGLOBIN 11.3 g/dL (11.5-14.8); LYMPHOCYTES # (AUTO) 1.3 K/uL (0.8-4.8); LYMPHOCYTES % (AUTO) 14.3 % (20.0-44.0); MEAN CORPUSCULAR HEMOGLOBIN 25 PG (26.0-33.0); MEAN CORPUSCULAR HGB CONC 32 g/dl (31.0-36.0); MEAN CORPUSCULAR VOLUME 79 fL (82-100); MONOCYTES # (AUTO) 0.5 K/uL (0.1-1.30); MONOCYTES % (AUTO) 5.3 % (2.0-12.0); NEUTROPHILS # (AUTO) 7.5 K/uL (1.8-8.9); PLATELET COUNT (AUTO) 247 K/uL (150-450); RED BLOOD CELL COUNT(AUTO) 4.46 MIL/uL (4.0-5.2); RED CELL DISTRIBUTION WIDTH 17.5 % (11.5-15.0); WHITE BLOOD COUNT (AUTO) 9.5 K/uL (4.3-11.0)
[2024-02-27] MEDS ORDERED: ACETAMINOPHEN ES 500 MG TABLET ONE (03:09)
[2024-02-27 03:22] LABS: CALCIUM, SERUM 9.5 mg/dL (8.5-10.1); CARBON DIOXIDE 25 mmol/L (21-32); CHLORIDE 101 mmol/L (98-107); CREATININE 0.8 mg/dL (0.6-1.3); GLUCOSE 122 mg/dL (74-106); POTASSIUM 3.5 mmol/L (3.5-5.1); SODIUM SERUM 137 mmol/L (136-145); UREA NITROGEN, BLOOD 10 mg/dL (7-18)
[2024-02-27 03:26] LABS: INR 1.01 (0.91-1.10); PARTIAL THROMBOPLASTIN TIME 26.5 SEC (24.3-34.3); PROTHROMBIN TIME 10.7 SECS (9.2-11.1)
[2024-02-27] MEDS: CEFEPIME 1 GM in IV D5W 50 ML IV ONE (03:27)
[2024-02-27] MEDS: ACETAMINOPHEN ES 500 MG TABLET PO ONE (03:27)
[2024-02-27] MEDS: IV NS 0.9% 1,000 ML BAG IV ONE (03:27)
[2024-02-27 03:28] LABS: ALANINE AMINOTRANSFERASE 7 U/L (12-78); ALBUMIN 2.6 g/dL (3.4-5.0); ALKALINE PHOSPHATASE 72 U/L (46-116); ASPARTATE AMINOTRANSFERASE 13 U/L (15-37); BILIRUBIN,DIRECT 0.2 mg/dL (0.0-0.2); BILIRUBIN,TOTAL 0.6 mg/dL (0.2-1.0)
[2024-02-27 03:30] LABS: LACTIC ACID 1.8 mmol/L (0.4-2.0)
[2024-02-27] MEDS: VANCOMYCIN 1 GM in IV D5W 250 ML IV ONE ×2 (04:15→08:53)
[2024-02-27] MEDS ORDERED: ENOXAPARIN SODIUM 80 MG/0.8 ML DISP.SYRIN SQ ONE (04:24)
[2024-02-27] MEDS: ENOXAPARIN SODIUM 60 MG/0.6 ML DISP.SYRIN SQ ONE (04:30)
[2024-02-27] MEDS ORDERED: CHOL200059 PO (07:19)
[2024-02-27] MEDS ORDERED: ASPI-1169 PO (07:19)
[2024-02-27] MEDS ORDERED: METO50TA16 PO (07:19)
[2024-02-27] MEDS ORDERED: ATOR40TA PO (07:19)
[2024-02-27] MEDS ORDERED: CALC1TAB91 PO (07:19)
[2024-02-27] MEDS ORDERED: Z GUARD REMEDY 4 OZ OINT TP PRN (07:30)
[2024-02-27] MEDS ORDERED: MAGNESIUM HYDROXIDE 30 ML UDC PO PRN (07:30)
[2024-02-27] MEDS ORDERED: ZOLPIDEM TARTRATE 5 MG TABLET PO PRN (07:30)
[2024-02-27] MEDS: PANTOPRAZOLE 40 MG TABLET.DR PO SCH (08:53)
[2024-02-27 10:08] LABS: APPEARANCE,URINE CLEAR (CLEAR); BILIRUBIN,URINE NEGATIVE (NEGATIVE); BLOOD, URINE TRACE-INTA Ery/uL (NEGATIVE); COLOR,URINE YELLOW (YELLOW); KETONES,URINE NEGATIVE (NEGATIVE); LEUKOCYTE ESTERASE ,URINE NEGATIVE (NEGATIVE); NITRITE, URINE POSITIVE (NEGATIVE); PROTEIN,URINE NEGATIVE (NEGATIVE); UGLUCOSE NEGATIVE (NEGATIVE); UROBILINOGEN,URINE 0.2 EU/dL (0.2)
[2024-02-27 10:09] LABS: ADD URINE CULTURE YES; BACTERIA,URINE Few /HPF (None Seen); SQUAMOUS EPITHELIAL CELL,UR Rare /HPF (None Seen)
[2024-02-27] MEDS: CEFEPIME 2 GM in IV D5W 100 ML IV SCH (10:36)
[2024-02-27] MEDS ORDERED: IV NS 0.9% 250 ML IV ONE (15:18)
[2024-02-27] MEDS ORDERED: IOHEXOL-350 100 ML VIAL IV ONE (15:18)
[2024-02-27] MEDS: ATORVASTATIN 40 MG TABLET PO SCH (16:20)
[2024-02-27] MEDS: METOPROLOL TARTRATE 50 MG TABLET PO SCH (16:21)
[2024-02-27] MEDS: ASPIRIN 81 MG TAB.CHEW PO SCH (16:21)
[2024-02-27 20:00] VITALS: BP 92/55; TEMP 98.1; O2SAT 95
[2024-02-27] MEDS: VANCOMYCIN 750 MG in IV D5W 250 ML IV SCH (20:21)
[2024-02-27] MEDS: ENOXAPARIN SODIUM 80 MG/0.8 ML DISP.SYRIN SQ SCH (21:11)
[2024-02-28] VITALS: BP 111/60; TEMP 98.8; O2SAT 95
[2024-02-28 04:00] VITALS: BP 109/53; TEMP 98.9; O2SAT 96
[2024-02-28] MEDS: ACETAMINOPHEN 325 MG TABLET PO PRN (05:48)
[2024-02-28 06:58] LABS: BASOPHILS % (AUTO) 0.6 % (0.0-2.0); EOSINOPHILS % (AUTO) 0.5 % (0.0-6.0); HEMATOCRIT 33 % (33-45); HEMOGLOBIN 10.3 g/dL (11.5-14.8); LYMPHOCYTES # (AUTO) 2.3 K/uL (0.8-4.8); LYMPHOCYTES % (AUTO) 27.1 % (20.0-44.0); MEAN CORPUSCULAR HEMOGLOBIN 25 PG (26.0-33.0); MEAN CORPUSCULAR HGB CONC 32 g/dl (31.0-36.0); MEAN CORPUSCULAR VOLUME 78 fL (82-100); MONOCYTES # (AUTO) 0.9 K/uL (0.1-1.30); NEUTROPHILS # (AUTO) 5.2 K/uL (1.8-8.9); NEUTROPHILS % (AUTO) 60.8 % (43.0-81.0); PLATELET COUNT (AUTO) 218 K/uL (150-450); RED BLOOD CELL COUNT(AUTO) 4.16 MIL/uL (4.0-5.2); RED CELL DISTRIBUTION WIDTH 17.1 % (11.5-15.0); WHITE BLOOD COUNT (AUTO) 8.5 K/uL (4.3-11.0)
[2024-02-28 07:12] LABS: CALCIUM, SERUM 8.7 mg/dL (8.5-10.1); CREATININE 0.8 mg/dL (0.6-1.3); PHOSPHORUS 3.1 mg/dL (2.5-4.9); POTASSIUM 3.2 mmol/L (3.5-5.1)
[2024-02-28 07:21] LABS: THYROID STIMULATING HORMONE 2.01 uIU/mL (0.358-3.74)
[2024-02-28 08:00] VITALS: BP 91/47; TEMP 98.2; O2SAT 96
[2024-02-28] MEDS: ENSURE ENLIVE CHOC 237 ML CAN PO SCH (08:18)
[2024-02-28] MEDS: POTASSIUM CHLORIDE 20 MEQ TAB.PRT.SR PO SCH (08:18)
[2024-02-28 12:00] VITALS: BP 97/55; TEMP 97.7; O2SAT 100
[2024-02-28 16:00] VITALS: BP 108/65; TEMP 98.1; O2SAT 100
[2024-02-28 20:00] VITALS: BP 143/81; TEMP 100; O2SAT 100
[2024-02-29] VITALS: BP 140/81; TEMP 99; O2SAT 100
[2024-02-29 04:00] VITALS: BP 140/81; TEMP 98.3; O2SAT 100
[2024-02-29 07:13] LABS: BASOPHILS # (AUTO) 0.1 K/uL (0.0-0.2); BASOPHILS % (AUTO) 0.6 % (0.0-2.0); EOSINOPHILS # (AUTO) 0.1 K/uL (0.0-0.7); HEMATOCRIT 33 % (33-45); HEMOGLOBIN 10.8 g/dL (11.5-14.8); LYMPHOCYTES # (AUTO) 2.4 K/uL (0.8-4.8); LYMPHOCYTES % (AUTO) 27.5 % (20.0-44.0); MEAN CORPUSCULAR HEMOGLOBIN 25 PG (26.0-33.0); MEAN CORPUSCULAR HGB CONC 33 g/dl (31.0-36.0); MEAN CORPUSCULAR VOLUME 78 fL (82-100); MONOCYTES # (AUTO) 1.1 K/uL (0.1-1.30); MONOCYTES % (AUTO) 12.7 % (2.0-12.0); NEUTROPHILS # (AUTO) 5.1 K/uL (1.8-8.9); NEUTROPHILS % (AUTO) 58.2 % (43.0-81.0); PLATELET COUNT (AUTO) 222 K/uL (150-450); RED BLOOD CELL COUNT(AUTO) 4.25 MIL/uL (4.0-5.2); RED CELL DISTRIBUTION WIDTH 16.6 % (11.5-15.0); WHITE BLOOD COUNT (AUTO) 8.8 K/uL (4.3-11.0)
[2024-02-29 07:41] LABS: ALBUMIN 2.1 g/dL (3.4-5.0); BILIRUBIN,TOTAL 0.4 mg/dL (0.2-1.0); CALCIUM, SERUM 8.1 mg/dL (8.5-10.1); CREATININE 0.7 mg/dL (0.6-1.3); MAGNESIUM 2.2 mg/dL (1.8-2.4); PHOSPHORUS 3.4 mg/dL (2.5-4.9); POTASSIUM 3.6 mmol/L (3.5-5.1); TOTAL PROTEIN, SERUM 7.6 g/dL (6.4-8.2)
[2024-02-29 08:00] VITALS: BP 116/68; TEMP 98.2; O2SAT 98
[2024-02-29] MEDS: MAG HYDROX/AL HYDROX/SIMETH 30 ML UDC PO PRN (11:02)
[2024-02-29 12:07] VITALS: BP 107/69; TEMP 98.4; O2SAT 95
[2024-02-29 16:00] VITALS: BP 113/73; TEMP 99; O2SAT 98
[2024-02-29 20:00] VITALS: BP 115/70; TEMP 98.4; O2SAT 96
[2024-02-29] MEDS: METOPROLOL TARTRATE INJ 5 MG/5 ML AMPUL IVP PRN (20:49)
[2024-02-29] MEDS ORDERED: METOPROLOL TARTRATE INJ 5 MG/5 ML AMPUL IVP PRN (23:00)
[2024-02-29] MEDS: AMIODARONE 150 MG/3 ML VIAL IV ONE ×3 (23:37→23:48)
[2024-02-29] MEDS: AMIODARONE 150 MG in IV D5W 100 ML IV ONE (23:39)
[2024-03-01] VITALS: BP 109/67; TEMP 98.8; O2SAT 97
[2024-03-01] MEDS: AMIODARONE 450 MG in IV D5W 241 ML IV PRN
[2024-03-01 04:00] VITALS: BP 103/79; TEMP 98.6; O2SAT 99
[2024-03-01 07:11] LABS: CALCIUM, SERUM 8.3 mg/dL (8.5-10.1); CREATININE 0.7 mg/dL (0.6-1.3); POTASSIUM 3.8 mmol/L (3.5-5.1)
[2024-03-01 08:00] VITALS: BP 108/67; TEMP 98.6; O2SAT 98
[2024-03-01 12:00] VITALS: BP 102/64; TEMP 98.4; O2SAT 98
[2024-03-01 16:00] VITALS: BP 104/72; TEMP 98.2; O2SAT 96
[2024-03-01 20:00] VITALS: BP 116/80; TEMP 98.6; O2SAT 96
[2024-03-01] MEDS: ONDANSETRON HCL/PF 4 MG/2 ML VIAL IVP PRN (23:19)
[2024-03-02] VITALS (7 sets, daily range): BP systolic 102–132; BP diastolic 56–81; TEMP 97.9–98.9; O2SAT 90–100
[2024-03-02 07:50] LABS: CALCIUM, SERUM 8.4 mg/dL (8.5-10.1); CARBON DIOXIDE 33 mmol/L (21-32); CHLORIDE 95 mmol/L (98-107); CREATININE 0.7 mg/dL (0.6-1.3); GLUCOSE 101 mg/dL (74-106); SODIUM SERUM 131 mmol/L (136-145); UREA NITROGEN, BLOOD 17 mg/dL (7-18)
[2024-03-02] MEDS: METOPROLOL TARTRATE 50 MG TABLET PO SCH (17:00)
[2024-03-03] VITALS (8 sets, daily range): BP systolic 97–108; BP diastolic 56–69; TEMP 97.1–98.9; O2SAT 98–100
[2024-03-03] MEDS: DILTIAZEM HCL 50 MG IV IV ONE (02:07)
[2024-03-03] MEDS: DILTIAZEM HCL 25 MG IV ONE (02:10)
[2024-03-03 07:46] LABS: BASOPHILS % (AUTO) 0.4 % (0.0-2.0); EOSINOPHILS # (AUTO) 0.4 K/uL (0.0-0.7); EOSINOPHILS % (AUTO) 3.9 % (0.0-6.0); HEMATOCRIT 31 % (33-45); LYMPHOCYTES # (AUTO) 2.5 K/uL (0.8-4.8); LYMPHOCYTES % (AUTO) 24.1 % (20.0-44.0); MEAN CORPUSCULAR HEMOGLOBIN 25 PG (26.0-33.0); MEAN CORPUSCULAR HGB CONC 32 g/dl (31.0-36.0); MEAN CORPUSCULAR VOLUME 78 fL (82-100); MONOCYTES # (AUTO) 1.2 K/uL (0.1-1.30); MONOCYTES % (AUTO) 11.3 % (2.0-12.0); NEUTROPHILS # (AUTO) 6.3 K/uL (1.8-8.9); NEUTROPHILS % (AUTO) 60.3 % (43.0-81.0); PLATELET COUNT (AUTO) 265 K/uL (150-450); RED CELL DISTRIBUTION WIDTH 16.6 % (11.5-15.0); WHITE BLOOD COUNT (AUTO) 10.5 K/uL (4.3-11.0)
[2024-03-03] MEDS: DIGOXIN INJ 0.5 MG/2 ML AMPUL IV ONE (10:03)
[2024-03-03 10:04] LABS: BILIRUBIN,TOTAL 0.3 mg/dL (0.2-1.0); CALCIUM, SERUM 8.3 mg/dL (8.5-10.1); CREATININE 0.7 mg/dL (0.6-1.3); MAGNESIUM 2.5 mg/dL (1.8-2.4); PHOSPHORUS 2.9 mg/dL (2.5-4.9); POTASSIUM 4.1 mmol/L (3.5-5.1); TOTAL PROTEIN, SERUM 7.8 g/dL (6.4-8.2)
[2024-03-03 21:49] LABS: URINE SODIUM, RANDOM 30 mmol/l (40-220)
[2024-03-04] VITALS: BP 113/58; TEMP 97.3; O2SAT 98
[2024-03-04 04:00] VITALS: BP 102/60; TEMP 97.8; O2SAT 99
[2024-03-04 06:06] LABS: *SPE A/G RATIO 0.6 (0.7-1.7); *SPE ALBUMIN 2.5 g/dL (2.9-4.4); *SPE ALPHA-1-GLOBULIN 0.3 g/dL (0.0-0.4); *SPE GLOBULIN, TOTAL 4.5 g/dL (2.2-3.9); *SPE M-SPIKE Not Observed g/dL (Not Observed); *SPEGAMMA GLOBULIN 2.1 g/dL (0.4-1.8)
[2024-03-04 07:19] LABS: BASOPHILS # (AUTO) 0.1 K/uL (0.0-0.2); BASOPHILS % (AUTO) 0.6 % (0.0-2.0); EOSINOPHILS # (AUTO) 0.5 K/uL (0.0-0.7); EOSINOPHILS % (AUTO) 5.1 % (0.0-6.0); HEMATOCRIT 30 % (33-45); HEMOGLOBIN 9.7 g/dL (11.5-14.8); LYMPHOCYTES # (AUTO) 2.3 K/uL (0.8-4.8); LYMPHOCYTES % (AUTO) 22.6 % (20.0-44.0); MEAN CORPUSCULAR HEMOGLOBIN 25 PG (26.0-33.0); MEAN CORPUSCULAR HGB CONC 32 g/dl (31.0-36.0); MEAN CORPUSCULAR VOLUME 78 fL (82-100); MONOCYTES # (AUTO) 1.1 K/uL (0.1-1.30); MONOCYTES % (AUTO) 11.1 % (2.0-12.0); NEUTROPHILS # (AUTO) 6.2 K/uL (1.8-8.9); NEUTROPHILS % (AUTO) 60.6 % (43.0-81.0); PLATELET COUNT (AUTO) 282 K/uL (150-450); RED BLOOD CELL COUNT(AUTO) 3.88 MIL/uL (4.0-5.2); RED CELL DISTRIBUTION WIDTH 16.8 % (11.5-15.0); WHITE BLOOD COUNT (AUTO) 10.2 K/uL (4.3-11.0)
[2024-03-04 07:43] LABS: ALBUMIN 1.9 g/dL (3.4-5.0); BILIRUBIN,TOTAL 0.3 mg/dL (0.2-1.0); CALCIUM, SERUM 8.4 mg/dL (8.5-10.1); CREATININE 0.7 mg/dL (0.6-1.3); MAGNESIUM 2.5 mg/dL (1.8-2.4); PHOSPHORUS 2.8 mg/dL (2.5-4.9); POTASSIUM 4.1 mmol/L (3.5-5.1); TOTAL PROTEIN, SERUM 7.6 g/dL (6.4-8.2)
[2024-03-04 08:00] VITALS: BP 109/82; TEMP 98; O2SAT 97
[2024-03-04 12:17] VITALS: BP 98/61; TEMP 97.7; O2SAT 95
[2024-03-04 16:00] VITALS: BP 101/69; TEMP 97.8; O2SAT 95
[2024-03-04] MEDS: AMIODARONE HCL 200 MG TABLET PO SCH (16:38)
[2024-03-04 20:00] VITALS: BP 92/57; TEMP 98.1; O2SAT 98
[2024-03-04 21:09] LABS: OSMOLALITY,URINE 410 mOS/kg (340-1090)
[2024-03-05] VITALS: BP 122/69; TEMP 98.5; O2SAT 99
[2024-03-05 04:00] VITALS: BP 108/62; TEMP 97.9; O2SAT 99
[2024-03-05 08:00] VITALS: BP 118/68; TEMP 98.4; O2SAT 93
[2024-03-05 08:32] LABS: CALCIUM, SERUM 9.2 mg/dL (8.5-10.1); POTASSIUM 4.3 mmol/L (3.5-5.1)
[2024-03-05 08:43] LABS: CREATININE 0.8 mg/dL (0.6-1.3)
[2024-03-05 12:00] VITALS: BP 126/77; TEMP 97.5; O2SAT 93
[2024-03-05] MEDS: ENOXAPARIN SODIUM 40 MG/0.4 ML DISP.SYRIN SQ SCH (12:40)
[2024-03-05] MEDS: AMIODARONE 150 MG in IV D5W 100 ML IV ONE (14:38)
[2024-03-05] MEDS: AMIODARONE 450 MG in IV D5W 241 ML IV PRN (14:48)
[2024-03-05 16:00] VITALS: BP 101/66; TEMP 98; O2SAT 93
[2024-03-05 20:00] VITALS: BP 104/62; TEMP 98.1; O2SAT 98
[2024-03-06] VITALS: BP 119/68; TEMP 98.2; O2SAT 99
[2024-03-06 04:00] VITALS: BP 124/67; TEMP 98.4; O2SAT 98
[2024-03-06 07:27] LABS: CALCIUM, SERUM 8.8 mg/dL (8.5-10.1); CREATININE 0.7 mg/dL (0.6-1.3); POTASSIUM 4.2 mmol/L (3.5-5.1)
[2024-03-06 08:00] VITALS: BP 104/73; TEMP 98.2; O2SAT 98
[2024-03-06] MEDS: AMIODARONE HCL 200 MG TABLET PO SCH (11:36)
[2024-03-06 12:00] VITALS: BP 113/73; TEMP 98.6; O2SAT 99
[2024-03-06 16:00] VITALS: BP 107/64; TEMP 98.1; O2SAT 99
[2024-03-06] MEDS: AMIODARONE 150 MG in IV D5W 100 ML IV ONE (17:01)
[2024-03-06] MEDS: AMIODARONE 450 MG in IV D5W 241 ML IV PRN (17:27)
[2024-03-06] MEDS: METOPROLOL TARTRATE 25 MG TABLET PO SCH (19:05)
[2024-03-06 20:00] VITALS: BP 114/63; TEMP 98.4; O2SAT 99
[2024-03-07] VITALS: BP 119/81; TEMP 98.5; O2SAT 94
[2024-03-07 04:00] VITALS: BP 118/62; TEMP 97.9; O2SAT 99
[2024-03-07 07:01] LABS: BASOPHILS % (AUTO) 0.3 % (0.0-2.0); EOSINOPHILS # (AUTO) 0.2 K/uL (0.0-0.7); EOSINOPHILS % (AUTO) 1.8 % (0.0-6.0); HEMATOCRIT 30 % (33-45); HEMOGLOBIN 9.6 g/dL (11.5-14.8); LYMPHOCYTES # (AUTO) 2.7 K/uL (0.8-4.8); LYMPHOCYTES % (AUTO) 21.6 % (20.0-44.0); MEAN CORPUSCULAR HEMOGLOBIN 25 PG (26.0-33.0); MEAN CORPUSCULAR HGB CONC 32 g/dl (31.0-36.0); MEAN CORPUSCULAR VOLUME 78 fL (82-100); MONOCYTES # (AUTO) 1.1 K/uL (0.1-1.30); MONOCYTES % (AUTO) 8.4 % (2.0-12.0); NEUTROPHILS # (AUTO) 8.5 K/uL (1.8-8.9); NEUTROPHILS % (AUTO) 67.9 % (43.0-81.0); PLATELET COUNT (AUTO) 362 K/uL (150-450); RED BLOOD CELL COUNT(AUTO) 3.82 MIL/uL (4.0-5.2); RED CELL DISTRIBUTION WIDTH 16.4 % (11.5-15.0); WHITE BLOOD COUNT (AUTO) 12.6 K/uL (4.3-11.0)
[2024-03-07 07:12] LABS: ALBUMIN 1.9 g/dL (3.4-5.0); BILIRUBIN,TOTAL 0.4 mg/dL (0.2-1.0); CALCIUM, SERUM 9.1 mg/dL (8.5-10.1); CREATININE 0.7 mg/dL (0.6-1.3); MAGNESIUM 2.3 mg/dL (1.8-2.4); TOTAL PROTEIN, SERUM 7.6 g/dL (6.4-8.2)
[2024-03-07 08:00] VITALS: BP 107/57; TEMP 97.5; O2SAT 99
[2024-03-07 08:42] VITALS: BP 107/57
[2024-03-08] MEDS ORDERED: AMIODARONE HCL 200 MG TABLET PO SCH (08:00)
== END 2024-03-07 12:00 | disposition left against medical advice (07) | DRG 190 ==
LOC: ER 02:37 → TELE1 04:56 → TELE-TD 02-29 23:18 → TELE1 03-01 12:39 → TELE-TD 03-05 14:14
PROVIDERS: ATTEND Nurse Practitioner Family
DX: I21.4 Non-ST elevation (NSTEMI) myocardial infarction (principal); E87.1 Hypo-osmolality and hyponatremia; E86.9 Volume depletion, unspecified; J90 Pleural effusion, not elsewhere classified; R65.10 Systemic inflammatory response syndrome (SIRS) of non-infectious origin without acute organ dysfunction; I48.0 Paroxysmal atrial fibrillation; E78.5 Hyperlipidemia, unspecified; E87.6 Hypokalemia; D64.9 Anemia, unspecified; Z95.1 Presence of aortocoronary bypass graft; I25.10 Atherosclerotic heart disease of native coronary artery without angina pectoris; I10 Essential (primary) hypertension; M54.31 Sciatica, right side; Z95.2 Presence of prosthetic heart valve; Z20.822 Contact with and (suspected) exposure to COVID-19; Z79.82 Long term (current) use of aspirin; I35.0 Nonrheumatic aortic (valve) stenosis; G51.0 Bell's palsy; G89.29 Other chronic pain; Z79.899 Other long term (current) drug therapy; Z91.013 Allergy to seafood; I25.2 Old myocardial infarction; R77.1 Abnormality of globulin; Z99.3 Dependence on wheelchair
CPT/HCPCS: 36415; 71045-TC; 80048-TC; 80053-TC; 80061-TC; 80076-TC; 80202-TC; 81001; 83605-TC; 83735-TC; 83880; 83935-TC; 84100-TC; 84155; 84165; 84300-TC; 84443-TC; 84484-TC; 85025-TC; 85378-TC; 85730-TC; 87040-TC; 87086-TC; 93307-TC; 94761-TC; 94799-TC; A4223; G0378; J0282; J0692; J1160; J1650; J2405; J3370; J3371; J3490; J7050; J7060; Q9967